=== PATIENT | female | born 1985 | race Caucasian/White ===

== ENCOUNTER 2017-03-14 21:18 | Emergency (ER) | payer MEDICAID ==
[2017-03-15 01:15] VITALS: BP 141/67
== END 2017-03-15 01:15 | disposition home or self-care (01) ==
LOC: ED 21:18
DX: S90.512A Abrasion, left ankle, initial encounter (principal); W18.39XA Other fall on same level, initial encounter; Y93.89 Activity, other specified; Y99.8 Other external cause status; Y92.89 Other specified places as the place of occurrence of the external cause